=== PATIENT | female | born 1985 | race Caucasian/White ===

== ENCOUNTER → 2016-06-21 | Outpatient (CLI) | payer BC ==
[2016-06-21 17:19] LABS: BASOPHILS # (AUTO) 0.02 10*3/UL; BASOPHILS % (AUTO) 0.2 % (0-1); EOSINOPHILS % (AUTO) 0.4 % (0-8); HEMATOCRIT 39.4 % (37.0-47.0); HEMOGLOBIN 13.7 g/dL (12.0-16.0); IMM GRAN % (AUTO) 0.3 % (0-5); IMM GRAN# (AUTO) 0.03 10*3/UL; LYMPHOCYTES % (AUTO) 17.4 % (10-50); MEAN CORPUSCULAR HEMOGLOBIN 29.5 PG (27-31); MEAN CORPUSCULAR HGB CONC 34.8 g/dL (33-37); MEAN PLATELET VOLUME 11.5 FL (7.4-12.2); MONOCYTES # (AUTO) 0.98 10*3/UL (0.3-0.8); MONOCYTES % (AUTO) 8.5 % (5-15); NEUTROPHILS # (AUTO) 8.43 10*3/UL; NEUTROPHILS % (AUTO) 73.2 % (50-80); RDW COEFFICIENT OF VARIATION 12.7 % (11.5-14.5); RED BLOOD COUNT 4.64 10^6/uL (4.20-5.40); WHITE BLOOD COUNT 11.51 10^3/uL (4.8-10.8)
[2016-06-21 17:24] LABS: ASPARTATE AMINO TRANSFERASE 22 IU/L (8-39); BILIRUBIN,TOTAL 0.4 mg/dL (0.3-1.2); BLOOD UREA NITROGEN 12 mg/dL (7-22); BUN/CREATININE RATIO 17.14 (6-20); CALCIUM 9.4 mg/dL (8.7-10.7); CHLORIDE 103 meq/L (98-112); CREATININE 0.7 mg/dL (0.50-1.20); EST GLOMERULAR FILTRATION > 60 (>60 ml/min/1.73m(2)); GLUCOSE 83 mg/dL (78-110); SODIUM 135 meq/L (135-145); TOTAL PROTEIN 6.9 g/dL (6.1-8.0)
[2016-06-21 17:29] LABS: PLATELET MORPHOLOGY COMMENT NORMAL MORPHOLOGY (NORM); PRENATAL QUESTION YES (Y)
[2016-06-21 17:48] LABS: BILIRUBIN,URINE NEGATIVE (NEG); CLARITY,URINE CLEAR (CLEAR); GLUCOSE, URINE (UA) NEGATIVE (NEG); LEUKOCYTE ESTERASE ,URINE NEGATIVE (NEG); NITRATE,URINE NEGATIVE (NEG); OCCULT BLOOD,URINE NEGATIVE (NEG); PROTEIN,URINE NEGATIVE (NEG); UROBILINOGEN,URINE 0.2 mg/dL (0.2)
[2016-06-21 17:51] LABS: HIV ANTIBODY NEGATIVE (N); HIV-1 P24 ANTIGEN NEGATIVE (N); URINE SAMPLE TYPE CLEAN CATCH URINE
[2016-06-21 19:15] LABS: RBC,URINE 0-3 /hpf
[2016-06-21 19:16] LABS: SQUAMOUS EPITHELIAL CELL,UR RARE
[2016-06-23 13:46] LABS: RUBELLA IGG INDEX 2.7 (()); SYPHILIS IGG WITH REFLEX Negative (Negative)
[2016-06-23 13:49] LABS: HEP B SURFACE AG Negative (Negative)
== END ==
LOC: MOB LAB 15:27
PROVIDERS: ATTEND Obstetrics & Gynecology
DX: Z36 Encounter for antenatal screening of mother (principal); O09.291 Supervision of pregnancy with other poor reproductive or obstetric history, first trimester; Z83.49 Family history of other endocrine, nutritional and metabolic diseases
CPT/HCPCS: 36415; 80053; 80081; 81001; 84443; 86900; 86901; 87088

== ENCOUNTER → 2016-07-19 | Outpatient (CLI) | payer OTHER, BC ==
[2016-07-21 15:46] LABS: 24 HOUR URINE PROTEIN CONCENTR 4 mg/dL; 24 HOUR URINE TOTAL VOLUME 2925 ML; 24 HR URINE PROTEIN 117 mg/DAY (42-225)
== END ==
LOC: LAB 13:06
PROVIDERS: ATTEND Obstetrics & Gynecology
DX: O09.291 Supervision of pregnancy with other poor reproductive or obstetric history, first trimester (principal)
CPT/HCPCS: 84156

== ENCOUNTER → 2016-08-06 | Outpatient (CLI) | payer OTHER, BC ==
[2016-08-06 12:06] LABS: CREATININE 0.6 mg/dL (0.50-1.20); EST GLOMERULAR FILTRATION > 60 (>60 ml/min/1.73m(2)); POTASSIUM 3.8 meq/L (3.8-5.2)
[2016-08-06 12:07] LABS: BILIRUBIN,TOTAL 0.2 mg/dL (0.3-1.2); CALCIUM 9.3 mg/dL (8.7-10.7); TOTAL PROTEIN 6.5 g/dL (6.1-8.0)
== END ==
LOC: LAB 08:39
PROVIDERS: ATTEND Obstetrics & Gynecology
DX: O26.892 Other specified pregnancy related conditions, second trimester (principal); D68.62 Lupus anticoagulant syndrome; R94.5 Abnormal results of liver function studies; Z86.32 Personal history of gestational diabetes; Z3A.14 14 weeks gestation of pregnancy
CPT/HCPCS: 36415; 80053; 82248; 82950

== ENCOUNTER → 2016-09-16 | Outpatient (CLI) | payer OTHER, BC ==
--- NOTE | 2016-09-16 16:30 | DI ---
US OB GTE 14 WEEKS,09/16/2016 12:52 PM: Clinical History: screening for malformations. Previous Exam: June 15, 2016 Findings: Multiple transabdominal grayscale and color Doppler sonographic images are obtained through the pelvi s, and demonstrate a single live intrauterine gestation in vertex presentation. The placenta is anter ior without defects. anatomy is within normal limits. Detected Doppler heart tones measure 163 beats per minute. Estimated gestational age was determined by a composite of biparietal diameter, head circumference, a bdominal circumference and femur length yielding an estimated gestational age by ultrasound of 21 wee ks 2 days. Estimated weight is 414 g (84th percentile). Amniotic fluid index is grossly normal. Impression: A single live intrauterine gestation with size equal to dates.
== END ==
LOC: US 12:49
PROVIDERS: ATTEND Obstetrics & Gynecology
DX: Z36 Encounter for antenatal screening of mother (principal); Z3A.20 20 weeks gestation of pregnancy
CPT/HCPCS: 76805

== ENCOUNTER → 2016-10-18 | Outpatient (CLI) | payer OTHER, BC ==
[2016-10-20 14:04] LABS: 24 HOUR URINE TOTAL VOLUME 3090 ML
== END ==
LOC: LAB 08:38
PROVIDERS: ATTEND Obstetrics & Gynecology
DX: O09.292 Supervision of pregnancy with other poor reproductive or obstetric history, second trimester (principal); Z3A.25 25 weeks gestation of pregnancy
CPT/HCPCS: 84156

== ENCOUNTER → 2016-10-19 | Outpatient (CLI) | payer OTHER, BC ==
--- NOTE | 2016-10-19 14:19 | DI ---
US OB , LIMITED,10/19/2016 12:58 PM: Clinical History: Lupus anticoagulant affecting in the second trimester. Previous Exam: September 16, 2016 Findings: Multiple grayscale and color Doppler sonographic images are obtained through the pelvis, and demonstr ate a single live intrauterine gestation with detected Doppler heart tones of 144 beats per minute. Amniotic fluid index measures 19.6 cm. Estimated gestational age was determined by a composite of biparietal diameter, head circumference, a bdominal circumference and femur length yielding an estimated gestational age by ultrasound of 26 wee ks one day. Estimated weight is 935 g (86th percentile). Impression: Single live intrauterine station with size equal to dates.
== END ==
LOC: US 12:55
PROVIDERS: ATTEND Obstetrics & Gynecology
DX: O26.892 Other specified pregnancy related conditions, second trimester (principal); D68.62 Lupus anticoagulant syndrome; Z3A.25 25 weeks gestation of pregnancy
CPT/HCPCS: 76815

== ENCOUNTER → 2016-10-28 | Outpatient (CLI) | payer OTHER, BC | LOC: MOB LAB 10:47 | PROVIDERS: ATTEND Family Medicine | DX: O26.892 Other specified pregnancy related conditions, second trimester (principal); R30.0 Dysuria; Z3A.26 26 weeks gestation of pregnancy | CPT/HCPCS: 87088 ==

== ENCOUNTER → 2016-11-11 | Outpatient (CLI) | payer OTHER, BC ==
--- NOTE | 2016-11-11 15:24 | DI ---
LIMITED OBSTETRICAL ULTRASOUND, 11/11/2016 1:51 PM Clinical History: Lupus anticoagulant affecting in the second trimester. Previous Exam: 10/19/2016. ADJUSTED LMP: 04/25/2016. There is a single live IUP currently in vertex presentation. Estimated cervical length is 34 mm. Amni onic fluid content is normal. Amniotic fluid index is 16.5 cm. activity is observed as follows: cardiac and extremity. The placenta is anterior corpus and Grade 0. heart rate is 142 beats/mi nute and regular. No abnormalities are noted. BPD, HC, AC, and FL measurements are 71 mm, 268 m m, 261 mm, and 55 mm, respectively. These measurements correspond to EGA values of 28 weeks 4 days, 2 9 weeks 2 days, 30 weeks 2 days, and 29 weeks 1 day, respectively. The composite EGA is 29 weeks 3 da ys. The US EDC is 01/24/2017. EDC by adjusted LMP is 01/30/2017. LMP percentile is 76%. Estimated weight is 1425 g, plus or minus 208 g. Readin. Single live fetus with vertex presentation and normal amniotic fluid content. Amniotic fluid inde x is 16.5 cm. Placenta is anterior corpus and grade 1. Estimated cervical length is 34 mm. 2. The composite EGA 29 weeks 3 days with an ultrasound EDC of 01/24/2017. Based on the adjusted LMP date of 04/25/2016, the EDC would be 01/30/2017. 3. LMP percentile is 76%. Estimated weight is 1425 g, plus or minus 208 g. The weight of the f etus on the previous study was 935 g, plus or minus, 137 g.
== END ==
LOC: US 13:46
PROVIDERS: ATTEND Obstetrics & Gynecology
DX: O26.893 Other specified pregnancy related conditions, third trimester (principal); D68.62 Lupus anticoagulant syndrome; Z3A.28 28 weeks gestation of pregnancy
CPT/HCPCS: 76815

== ENCOUNTER → 2016-11-12 | Outpatient (CLI) | payer OTHER, BC ==
[2016-11-12 07:18] LABS: HEMATOCRIT 35.3 % (37.0-47.0); HEMOGLOBIN 11.9 g/dL (12.0-16.0); MEAN CORPUSCULAR HEMOGLOBIN 29.2 PG (27-31); MEAN CORPUSCULAR HGB CONC 33.7 g/dL (33-37); MEAN CORPUSCULAR VOLUME 86.5 FL (81-99); MEAN PLATELET VOLUME 9.8 FL (7.4-12.2); RED BLOOD COUNT 4.08 10^6/uL (4.20-5.40)
== END ==
LOC: LAB 07:05
PROVIDERS: ATTEND Obstetrics & Gynecology
DX: Z36 Encounter for antenatal screening of mother (principal); O09.893 Supervision of other high risk pregnancies, third trimester; Z3A.28 28 weeks gestation of pregnancy
CPT/HCPCS: 36415; 82950; 85027; 86850

== ENCOUNTER → 2016-12-06 | Outpatient (CLI) | payer OTHER, BC ==
--- NOTE | 2016-12-06 17:32 | DI ---
US OB BIOPHYS PROFILE W/NST,12/06/2016 4:16 PM: Clinical History: Lupus anticoagulant Previous Exam: Nov 11 2016 Findings: Multiple grayscale and color Doppler sonographic images are obtained through the pelvis, and demonstr ate a normal amniotic fluid index measuring 20.3 cm. There is normal motion of the limbs and diaphragms. Detected Doppler heart tones measured 139 beats p er minute. The placenta was anterior without visible defects. The cervix is long and closed measuring 4.4 cm in length. The fetus was in vertex presentation. Impression: 1. Normal biophysical profile (01/25)
== END ==
LOC: OBOP 15:59 → RT 15:59
PROVIDERS: ATTEND Obstetrics & Gynecology
DX: O24.415 Gestational diabetes mellitus in pregnancy, controlled by oral hypoglycemic drugs (principal); O09.293 Supervision of pregnancy with other poor reproductive or obstetric history, third trimester; D68.8 Other specified coagulation defects; Z3A.32 32 weeks gestation of pregnancy
CPT/HCPCS: 76818

== ENCOUNTER 2016-12-09 15:47 | Outpatient (CLI) | payer OTHER, BC ==
[2016-12-09 16:49] VITALS: RESP 18; TEMP 98.2
--- NOTE | 2016-12-09 17:24 | DI ---
US OB , LIMITED,12/09/2016 3:56 PM: Clinical History: Gestational diabetes. Previous Exam: Prior exam from December 06, 2016 Findings: Multiple grayscale and color Doppler sonographic images are obtained through the pelvis demonstrating a single live intrauterine gestation in vertex presentation. The cervix was not well seen on this ex am. Amniotic fluid index is normal measuring 20 cm. Detected Doppler heart tones measured 140 beats per minute. Estimated gestational age was determined by a composite of biparietal diameter, head circumference, a bdominal circumference and femur length yielding an estimated gestational age by ultrasound of 33 wee ks 6 days. Estimated weight is 2401 g corresponding with an 89 percentile. The abdominal circumference measured at the 98th percentile. Impression: Single live intrauterine gestation with size greater than dates. Normal amniotic fluid index.
== END 2016-12-09 17:33 | disposition home or self-care (01) ==
LOC: US 15:47
PROVIDERS: ATTEND Obstetrics & Gynecology
DX: O24.415 Gestational diabetes mellitus in pregnancy, controlled by oral hypoglycemic drugs (principal); O99.113 Other diseases of the blood and blood-forming organs and certain disorders involving the immune mechanism complicating pregnancy, third trimester; D68.8 Other specified coagulation defects; Z3A.32 32 weeks gestation of pregnancy
CPT/HCPCS: 59025; 76815; 99211

== ENCOUNTER 2016-12-13 15:52 | Outpatient (CLI) | payer OTHER, BC ==
[2016-12-13] MEDS ORDERED: NORMAL SALINE 10 ML SYRINGE FLUSH IVP PRN (16:48)
[2016-12-13 16:56] VITALS: RESP 18; TEMP 98.2
[2016-12-13 17:35] LABS: BASOPHILS # (AUTO) 0.02 10*3/UL; BASOPHILS % (AUTO) 0.1 % (0-1); EOSINOPHILS # (AUTO) 0.14 10*3/UL; HEMOGLOBIN 11.6 g/dL (12.0-16.0); LYMPHOCYTES # (AUTO) 2.69 10*3/uL; MEAN CORPUSCULAR HEMOGLOBIN 29.1 PG (27-31); MEAN CORPUSCULAR HGB CONC 34.1 g/dL (33-37); MEAN CORPUSCULAR VOLUME 85.4 FL (81-99); MEAN PLATELET VOLUME 10.2 FL (7.4-12.2); MONOCYTES # (AUTO) 1.37 10*3/UL (0.3-0.8); MONOCYTES % (AUTO) 9.5 % (5-15); NEUTROPHILS # (AUTO) 9.93 10*3/UL; RED BLOOD COUNT 3.98 10^6/uL (4.20-5.40)
[2016-12-13 17:40] LABS: PLATELET MORPHOLOGY COMMENT NORMAL MORPHOLOGY (NORM); RBC MORPHOLOGY COMMENT NORMAL MORPHOLOGY (NORM); WBC MORPHOLOGY COMMENT NORMAL MORPHOLOGY (NORM)
[2016-12-13 17:49] LABS: BLOOD UREA NITROGEN 9 mg/dL (7-22); CALCIUM 8.8 mg/dL (8.7-10.7); EST GLOMERULAR FILTRATION > 60 (>60 ml/min/1.73m(2)); SERUM ALBUMIN 3.3 g/dL (3.5-4.8)
[2016-12-14 10:50] LABS: FREE T4 (FREE THYROXINE) 0.78 ng/dL (0.93-1.71)
--- NOTE | 2016-12-15 22:33 | PDOC(PROG) ---
Intake - - Reason for Visit/Chief Complaint: NST Admitted From: Home - Estimated Due Date: 01/30/17 Gestational Age in Weeks and Days: 33 Weeks and 3 Days : 5 Para: 1 Term Births: 1 Births: 0 Number of Abortions (Spont./Elective): 3 Living Children: 1 - Labs Blood Type and Rh: A- Maternal - Vital Signs Last Taken Vital Signs: Vital Signs - Last Taken Temperature 98.2 F 12/13/16 16:48 Pulse Rate 121 H 12/13/16 16:48 Respiratory Rate 18 12/13/16 16:48 Blood Pressure 118/72 12/13/16 16:48 Pulse Ox 97 12/13/16 16:48 - Uterine Activity Uterine Contraction Monitor Mode: External Contraction Frequency(minutes): x1 Contraction Duration (seconds): 40 Uterine Contraction Pattern: Irregular - Vaginal Discharge Vaginal Bleeding Amount: None Vaginal Discharge Amount: None Monitoring - Uterine Activity Uterine Contraction Monitor Mode: External Contraction Frequency(minutes): x1 Contraction Duration (seconds): 40 Uterine Contraction Pattern: Irregular Results - Labs CBC and BMP: 12/13/16 17:25 12/13/16 17:25 - Bedside Testing Bedside Urine Ketone: Negative Bedside Urine Leukocytes Esterase: Negative Bedside Urine Nitrite: Negative Bedside Urine Occult Blood: Negative Bedside Urine Protein: Negative Bedside Specific [place]: 1.020 Assessment and Plan - Assessment / Plan Additional Assessment/Plan Details: Assessment/Plan: IUP 33+ weeks with lupus anticoagulant with recurrent SAB. Also gestational diabetes on glyburide. Patient also had some mild tachycardia in labor and delivery and historically as had mild tachycardia. The patient had a reactive nonstress test. The patient was sent home with precautions. Additionally, a CBC, CMP, TSH and free T4 were drawn prior to the patient leaving. Patient will continue antepartum testing 2 times per week.
== END 2016-12-13 17:45 | disposition home or self-care (01) ==
LOC: OBOP 15:52
PROVIDERS: ATTEND Obstetrics & Gynecology
DX: O09.293 Supervision of pregnancy with other poor reproductive or obstetric history, third trimester (principal); O26.893 Other specified pregnancy related conditions, third trimester; R94.6 Abnormal results of thyroid function studies; O24.415 Gestational diabetes mellitus in pregnancy, controlled by oral hypoglycemic drugs; Z3A.33 33 weeks gestation of pregnancy
CPT/HCPCS: 36415; 59025; 80053; 81003; 84436; 84439; 84443; 85025; 99211

== ENCOUNTER 2016-12-16 07:59 | Outpatient (CLI) | payer OTHER, BC ==
[2016-12-16 09:37] VITALS: RESP 16; TEMP 97.9
--- NOTE | 2016-12-16 11:11 | DI ---
US OB , LIMITED,12/16/2016 8:40 AM: Clinical History: Gestational diabetes. Previous Exam: None at this facility. Findings: Multiple grayscale and color Doppler sonographic images are obtained through the pelvis demonstrating a single live intrauterine gestation in breech presentation. Amniotic fluid index is normal measuring 18.0 cm. There is normal motion of the heart the limbs and diaphragms. The placenta is anterior and grade 1 without defects. Detected Doppler heart tones measure 134 beats per minute. Impression: Single live intrauterine gestation with normal amniotic fluid index.
== END 2016-12-16 10:52 | disposition home or self-care (01) ==
LOC: OBOP 07:59
PROVIDERS: ATTEND Obstetrics & Gynecology
DX: O24.415 Gestational diabetes mellitus in pregnancy, controlled by oral hypoglycemic drugs (principal); O99.113 Other diseases of the blood and blood-forming organs and certain disorders involving the immune mechanism complicating pregnancy, third trimester; D68.8 Other specified coagulation defects; O26.893 Other specified pregnancy related conditions, third trimester; R94.6 Abnormal results of thyroid function studies; Z3A.32 32 weeks gestation of pregnancy
CPT/HCPCS: 59025; 76815; 84481; 99211

== ENCOUNTER 2016-12-20 09:05 | Outpatient (CLI) | payer OTHER, BC ==
[2016-12-20 09:19] VITALS: RESP 18; TEMP 97.9
--- NOTE | 2016-12-20 12:40 | PDOC(PROG) ---
Intake - - Reason for Visit/Chief Complaint: NST Admitted From: Home - Estimated Due Date: 01/30/17 Gestational Age in Weeks and Days: 34 Weeks and 1 Days : 5 Para: 1 Term Births: 1 Births: 0 Number of Abortions (Spont./Elective): 3 Living Children: 1 - Labs Blood Type and Rh: A- Group B Strep: Unknown Hepatitis B Surface Antigen: Absent HIV: Negative Rubella Status: Immune VDRL/RPR: Absent Maternal - Vital Signs Last Taken Vital Signs: Vital Signs - Last Taken Temperature 97.9 F 12/20/16 09:16 Pulse Rate 100 12/20/16 09:16 Respiratory Rate 18 12/20/16 09:16 Blood Pressure 110/69 12/20/16 09:16 Pulse Ox 100 12/20/16 09:16 - Uterine Activity Uterine Contraction Monitor Mode: External Contraction Frequency(minutes): x2 Contraction Duration (seconds): 80 Uterine Contraction Pattern: Irregular - Vaginal Discharge Vaginal Bleeding Amount: None Vaginal Discharge Amount: None Monitoring - Uterine Activity Uterine Contraction Monitor Mode: External Contraction Frequency(minutes): x2 Contraction Duration (seconds): 80 Uterine Contraction Pattern: Irregular Results - Bedside Testing Bedside Urine Ketone: Negative Bedside Urine Leukocytes Esterase: Negative Bedside Urine Nitrite: Negative Bedside Urine Occult Blood: Negative Bedside Urine Protein: Negative Bedside Specific [place]: 1.005 Assessment and Plan - Assessment / Plan Additional Assessment/Plan Details: Assessment: IUP 34-1/7 week with lupus anticoagulant, gestational diabetes taking glyburide. Reactive nonstress test, patient did not bring glucoses with her. Patient has an appointment with me in 2 days. There were 2 contractions visualized on the nonstress test. The patient was given labor precautions. If the patient's contractions continue, I may offer steroids to help with lung maturity. Of course, this may increase her glucoses for a few days. The patient will continue her Lovenox and baby aspirin currently.
== END 2016-12-20 09:47 | disposition home or self-care (01) ==
LOC: OBOP 09:05
PROVIDERS: ATTEND Obstetrics & Gynecology
DX: O24.415 Gestational diabetes mellitus in pregnancy, controlled by oral hypoglycemic drugs (principal); O99.113 Other diseases of the blood and blood-forming organs and certain disorders involving the immune mechanism complicating pregnancy, third trimester; D68.8 Other specified coagulation defects; Z3A.34 34 weeks gestation of pregnancy
CPT/HCPCS: 59025; 81003; 99211

== ENCOUNTER → 2016-12-22 | Outpatient (CLI) | payer OTHER, BC ==
[2016-12-22 08:49] LABS: BASOPHILS # (AUTO) 0.06 10*3/UL; BASOPHILS % (AUTO) 0.4 % (0-1); EOSINOPHILS # (AUTO) 0.13 10*3/UL; EOSINOPHILS % (AUTO) 0.9 % (0-8); HEMATOCRIT 37.7 % (37.0-47.0); HEMOGLOBIN 12.9 g/dL (12.0-16.0); LYMPHOCYTES # (AUTO) 2.08 10*3/uL; MEAN CORPUSCULAR HEMOGLOBIN 29.3 PG (27-31); MEAN CORPUSCULAR HGB CONC 34.2 g/dL (33-37); MEAN CORPUSCULAR VOLUME 85.5 FL (81-99); MEAN PLATELET VOLUME 10.7 FL (7.4-12.2); MONOCYTES # (AUTO) 1.29 10*3/UL (0.3-0.8); MONOCYTES % (AUTO) 8.5 % (5-15); NEUTROPHILS # (AUTO) 11.37 10*3/UL; NEUTROPHILS % (AUTO) 74.6 % (50-80); RED BLOOD COUNT 4.41 10^6/uL (4.20-5.40)
[2016-12-22 08:50] LABS: PLATELET MORPHOLOGY COMMENT NORMAL MORPHOLOGY (NORM); RBC MORPHOLOGY COMMENT NORMAL MORPHOLOGY (NORM); WBC MORPHOLOGY COMMENT NORMAL MORPHOLOGY (NORM)
[2016-12-22 09:02] LABS: BLOOD UREA NITROGEN 8 mg/dL (7-22); BUN/CREATININE RATIO 13.33 (6-20); EST GLOMERULAR FILTRATION > 60 (>60 ml/min/1.73m(2)); SERUM ALBUMIN 3.8 g/dL (3.5-4.8)
[2016-12-22 09:19] LABS: FREE T4 (FREE THYROXINE) 0.69 ng/dL (0.93-1.71)
== END ==
LOC: LAB 08:31
PROVIDERS: ATTEND Obstetrics & Gynecology
DX: O26.893 Other specified pregnancy related conditions, third trimester (principal); R00.0 Tachycardia, unspecified; R94.6 Abnormal results of thyroid function studies; O09.293 Supervision of pregnancy with other poor reproductive or obstetric history, third trimester; Z3A.34 34 weeks gestation of pregnancy
CPT/HCPCS: 36415; 80053; 84439; 84443; 84481; 85025

== ENCOUNTER 2016-12-23 07:45 | Inpatient (IN) | payer OTHER, BC ==
[2016-12-23] MEDS ORDERED: NIFEdipine 10 MG CAPSULE PO ONE ×5 (09:09→11:10)
[2016-12-23] MEDS ORDERED: BETAMET ACET/BETAMET NA PH 6 MG/1 ML - 5 ML ONE (09:21)
[2016-12-23] MEDS: BETAMET ACET/BETAMET NA PH 6 MG/1 ML - 5 ML IM SCH (10:09)
[2016-12-23] MEDS: LACTATED RINGERS 1000 ML PRIMARY IV SCH ×2 (11:30→16:24)
--- NOTE | 2016-12-23 11:39 | DI ---
THYROID ULTRASOUND, 12/23/2016 8:35 AM Clinical History: Thyroid enlargement. Previous Exam: None. Scans are performed through both lobes of the thyroid gland in multiple projections with the high res olution linear array probe. Color Doppler ultrasound is also performed. Both lobes of the thyroid gland are of homogeneous texture and normal appearance. The right and left lobes measure 22 x 22 x 56 mm, and 17 x 20 x 48 mm, in the AP, transverse, and longitudinal dimension s, respectively. The right lobe is enlarged and the left lobe is at the upper limits of normal in siz e. There is no solid or cystic mass noted in either lobe or in the isthmus. Color Doppler ultrasound shows a normal vascular pattern in both lobes. Readin. The right lobe is enlarged and the left lobe is at the upper limits of normal in size. 2. Both lobes of the thyroid gland and the isthmus have a normal sonographic texture without evidenc e of a solid or cystic mass.
[2016-12-23] MEDS ORDERED: LIDOCAINE W/ SODIUM BICARB 0.5 ML SYR SUBD PRN (12:01)
[2016-12-23] MEDS ORDERED: ONDANSETRON 4 MG/2 ML VIAL IVP PRN (12:01)
[2016-12-23] MEDS ORDERED: NORMAL SALINE 10 ML SYRINGE FLUSH IVP PRN (12:01)
--- NOTE | 2016-12-23 12:16 | OB.PROGRES ---
Interval History: The patient is a 31-year-old at 34 4/7 weeks who presented today for antepartum testing secondary to positive lupus anticoagulant taking Lovenox 40 mg subcutaneous daily and gestational diabetes taking glyburide daily at bedtime and just starting nightly this morning after seeing me yesterday. The patient has been undergoing antepartum testing since around 32 weeks' gestation. The patient's has essentially been uncomplicated although she is taking the Lovenox and baby aspirin and now glyburide for gestational diabetes with slightly elevated fasting glucoses and 2 hour postprandial glucoses. With the presentation today, the patient was found to be todd regularly. The patient had an CECE which was due today and was found to be 27 cm. Additionally, the baby is in the breech presentation. The patient was administered nifedipine 10 mg prior to the ultrasound and then upon returning from the ultrasound she was given 10 mg daily 30 minutes for a total of 3 doses. The patient was also given Celestone 12 mg IM for lung maturity in case the patient delivers . A fibronectin was completed as well as a group B strep. The patient has a positive lupus anticoagulant or antiphospholipid antibody syndrome with a history of recurrent SABs and therefore workup and her Al' s viper venom was +2 different times over a three-month period. The patient currently is taking a baby aspirin daily and she is taking Lovenox 40 mg per day subcutaneously with an injection. The patient did not take her Lovenox this morning since she had a couple contractions prior to coming to labor and delivery. Past medical history is significant for recurrent SAB, a sleep disorder for which the patient takes trazodone up to 100 mg daily. The patient also has a hiatal hernia and has a history of GERD but does not have GERD currently. Patient has a history of depression but not currently. The patient also has a gluten enteropathy. Past surgical history after arrest of descent with unsuccessful forceps and vacuum. No known drug allergies No tobacco, alcohol, drugs Current medications vitamin, baby aspirin per day, Lovenox 40 mg daily subcutaneous, trazodone-patient is currently taking 25 mg at night for sleep and this is not helping that much. OB history significant for PIH and gestational diabetes. The patient states it was diet controlled at that time. The patient states that sometimes her glucoses were elevated. [employer] history with menarche age 12, irregular cycles 3545 days in length, no STI history, no abnormal Pap smear history with her last Pap smear within the last year and was normal and she had a negative GC and chlamydia. Family history significant for brother having Graves' disease Objective - Cervical Exam Cervical Exam: loose 1 cm/thick/high breech by u/s today. Cervix is firm. Cervix is slightly posterior. No blood on my glove digit with cervical exam Tina: Contractions every 2-3 minutes Heart Rate Interpretation Category: Category I - Labs CBC and BMP: 12/23/16 12:27 12/23/16 12:27 Labs - Last 24 Hours: Laboratory Results 12/23/16 Range/Units 09:21 Fibronectin Negative Fibronect Spec Quality No - Vital Signs Last Taken Vital Signs: Vital Signs - Last Taken Temperature 98.0 F 12/23/16 08:08 Pulse Rate 104 H 12/23/16 08:08 Respiratory Rate 16 12/23/16 08:08 Blood Pressure 131/80 12/23/16 10:46 Pulse Ox 99 12/23/16 08:08 - Additional Details Additional Details: Abdomen is gravid, soft and nontender. No guarding or rebound Lungs clear to auscultation Heart minimally tachycardic with a regular rhythm Extremities with no significant edema Reflexes 1+ bilaterally lower extremity -patellar Assessment and Plan - Assessment / Plan Additional Assessment/Plan Details: Assessment/Plan: IUP 34-4/7 weeks contractions. Currently, no change in cervix in 3+ hours between cervical checks. Contractions every 2-3 minutes. The patient has received nifedipine 10 mg 3 doses and then every 3 hours with next dose at 1415 hrs. The patient has received Celestone 12 mg IM 1 dose and will complete the course in 24 hours. Administered at 1000 hrs. today fibronectin was negative CECE was 27 cm today. This could be one etiology for contractions Previous section-here at [facility] we do not do TOLACs and the patient's baby is in breech presentation Repeat at 39 weeks if patient's contractions cease Repeat earlier if contractions continue. Recurrent SAB and lupus anticoagulant on Lovenox 40 mg per day and baby aspirin- 81 mg per day The patient did not take her Lovenox this morning since she had antepartum testing and felt a couple contractions. The patient will be switched over to unfractionated heparin 10,000 units subcutaneous twice a day-this will be started this evening Gestational diabetes taking Glyburide 7-1/2 mg daily at bedtime and 2.5 mg in the morning. The morning dose was just started this morning. The Celestone that is being administered will increase the patient's glucoses. We will continue fingerstick glucoses. If the glucoses elevate significantly, the patient may need insulin temporarily. History of preeclampsia in last and history of gestational diabetes and last . Patient is on baby aspirin per day. Patient had 2 slightly elevated blood pressures on presentation this morning but since then her blood pressures have been normal. 24-hour urine for total protein has been ordered. Liver function tests and creatinine are normal. Platelets are normal. Patient's white count is elevated to 20,000. Yesterday the white count was 15, 000. The white count today was drawn to a half hours after the Celestone was administered. There could be a deep margin a should and an increased white count secondary to the Celestone administered. The patient is not febrile and the patient's abdomen is nontender. I do not believe the patient has chorioamnionitis currently. Additionally, the patient's TSH was checked last week and was low-normal but normal secondary to maternal tachycardia 100-110. Patient's free T4 was low. Patient's free T3 was then checked and was normal. TSH, free T4 and free T3 was checked this week and again TSH low-normal, free T4 low, free T3 was normal. I did speak with our pediatric back line cook here and she thought that since free T3 was normal, no treatment was necessary. Plan: Please see above. Additionally, IV fluids at 125 an hour Clear liquids initially then regular diet I have held the patient's unfractionated heparin currently Once the patient does deliver the patient can go back on Lovenox 40 mg daily for 6 weeks Group B strep is pending Celestone 12 mg IM was administered at 1000 hours this morning and the second dose tomorrow morning at 1000 hrs. Follow fingerstick glucoses I will speak with my maternal- medicine consultants if the contractions continue every 2 minutes or if the patient's cervix starts to change for possible transport to [place] since we do not have a NICU here.
[2016-12-23 12:30] LABS: BASOPHILS # (AUTO) 0.04 10*3/UL; BASOPHILS % (AUTO) 0.2 % (0-1); EOSINOPHILS # (AUTO) 0.01 10*3/UL; EOSINOPHILS % (AUTO) 0 % (0-8); HEMATOCRIT 39.4 % (37.0-47.0); HEMOGLOBIN 13.7 g/dL (12.0-16.0); MEAN CORPUSCULAR HEMOGLOBIN 29.5 PG (27-31); MEAN CORPUSCULAR HGB CONC 34.8 g/dL (33-37); MEAN CORPUSCULAR VOLUME 84.7 FL (81-99); MEAN PLATELET VOLUME 10.6 FL (7.4-12.2); MONOCYTES # (AUTO) 0.46 10*3/UL (0.3-0.8); MONOCYTES % (AUTO) 2.3 % (5-15); NEUTROPHILS # (AUTO) 18.14 10*3/UL; NEUTROPHILS % (AUTO) 90.5 % (50-80); RED BLOOD COUNT 4.65 10^6/uL (4.20-5.40)
[2016-12-23 12:33] LABS: PLATELET MORPHOLOGY COMMENT NORMAL MORPHOLOGY (NORM); RBC MORPHOLOGY COMMENT NORMAL MORPHOLOGY (NORM); WBC MORPHOLOGY COMMENT NORMAL MORPHOLOGY (NORM)
[2016-12-23 12:39] LABS: BLOOD UREA NITROGEN 6 mg/dL (7-22); CALCIUM 9.3 mg/dL (8.7-10.7); EST GLOMERULAR FILTRATION > 60 (>60 ml/min/1.73m(2)); SERUM ALBUMIN 4.1 g/dL (3.5-4.8)
[2016-12-23] MEDS: NIFEdipine 10 MG CAPSULE PO SCH ×4 (14:13→23:08)
[2016-12-23 14:17] LABS: BILIRUBIN,URINE NEGATIVE (NEG); CLARITY,URINE CLEAR (CLEAR); COLOR,URINE YELLOW; GLUCOSE, URINE (UA) NEGATIVE (NEG); NITRATE,URINE NEGATIVE (NEG); OCCULT BLOOD,URINE NEGATIVE (NEG); PROTEIN,URINE NEGATIVE (NEG); UROBILINOGEN,URINE 0.2 EU/dL (0.2)
[2016-12-23 14:28] LABS: URINE SAMPLE TYPE VOIDED SPECIMEN
[2016-12-23 14:29] LABS: SQUAMOUS EPITHELIAL CELL,UR FEW; WBC,URINE 0-2
--- NOTE | 2016-12-23 15:32 | OB.PROGRES ---
Interval History: The patient is comfortable but can feel her contractions. 2-3 out of 10 on a pain scale. She is not breathing through her contractions. Her contractions are about every 3 minutes. No leakage of fluid and no vaginal bleeding. Patient is tolerating the nifedipine well. Objective - Cervical Exam [place]: Contractions every 2-1/2-3 minutes Heart Rate Interpretation Category: Category I - Labs CBC and BMP: 12/23/16 12:27 12/23/16 12:27 Labs - Last 24 Hours: Laboratory Results 12/23/16 12/23/16 12/23/16 Range/Units 09:21 12:27 14:15 WBC 20.06 H (4.8-10.8) 10^3/uL RBC 4.65 (4.20-5.40) 10^6/uL Hgb 13.7 (12.0-16.0) g/dL Hct 39.4 (37.0-47.0) % MCV 84.7 (81-99) FL MCH 29.5 (27-31) PG MCHC 34.8 (33-37) g/dL RDW Std Deviation 45.4 (39-50) fL RDW Coeff of Hortencia 15.1 H (11.5-14.5) % Plt Count 205 (140-350) 10*3/uL MPV 10.6 (7.4-12.2) FL Immature Gran % (Auto) 1.5 (0-5) % Neut % (Auto) 90.5 H (50-80) % Lymph % (Auto) 5.5 L (10-50) % Riley % (Auto) 2.3 L (5-15) % Eos % (Auto) 0 (0-8) % Baso % (Auto) 0.2 (0-1) % Immature Gran # (Auto) 0.31 10*3/UL Neut # (Auto) 18.14 10*3/UL Lymph # (Auto) 1.10 10*3/uL Riley # (Auto) 0.46 (0.3-0.8) 10*3/UL Eos # (Auto) 0.01 10*3/UL Baso # (Auto) 0.04 10*3/UL WBC Morphology Comment Normal morphology (NORM) Plt Morphology Comment Normal morphology (NORM) RBC Morph Comment Normal morphology (NORM) Sodium 137 (135-145) meq/L Potassium 3.9 (3.8-5.2) meq/L Chloride 108 (98-112) meq/L Carbon Dioxide 17 L (23-33) meq/L Anion Gap 12 (5-20) BUN 6 L (7-22) mg/dL Creatinine 0.6 (0.50-1.20) mg/dL Estimated GFR > 60 (>60 ml/min/1.73m(2)) BUN/Creatinine Ratio 10.00 (6-20) Glucose 127 H (78-110) mg/dL Calculated Osmolality 283.0 (267-292) mOsm/kg Calcium 9.3 (8.7-10.7) mg/dL Total Bilirubin 0.5 D (0.3-1.2) mg/dL AST 21 (8-39) IU/L ALT 38 (9-52) IU/L Alkaline Phosphatase 115 (38-126) IU/L Total Protein 7.4 (6.1-8.0) g/dL Albumin 4.1 (3.5-4.8) g/dL Globulin 3.3 (2.50-4.10) g/dL Albumin/Globulin Ratio 1.20 L (1.3-2.0) mg/g Ur Collection Type Voided specimen Urine Color Yellow Urine Clarity Clear (CLEAR) Urine pH 7.0 (5.0-8.5) Ur Specific [place] 1.010 (1.005-1.030) Urine Protein Negative (NEG) mg/dl Urine Glucose (UA) Negative (NEG) mg/dL Urine Ketones 80 (NEG) Urine Occult Blood Negative (NEG) Urine Nitrate Negative (NEG) Urine Bilirubin Negative (NEG) Urine Urobilinogen 0.2 (0.2) EU/dL Ur Leukocyte Esterase Trace (NEG) Urine RBC None (NONE) /hpf Urine WBC 0-2 (NONE) Ur Squamous Epith Cells Few (NONE) Ur Renal Epithelial Cell None (NONE) Urine Crystals None Urine Bacteria None (NONE) Urine Casts None (NONE) Urine Mucus None (NONE) Urine Trichomonas None (NONE) Urine Yeast None (NONE) Ur Culture Indicated? Culture not set Fibronectin Negative Fibronect Spec Quality No - Vital Signs Last Taken Vital Signs: Vital Signs - Last Taken Temperature 98.0 F 12/23/16 13:22 Pulse Rate 105 H 12/23/16 13:22 Respiratory Rate 20 12/23/16 13:22 Blood Pressure 129/77 12/23/16 13:22 Pulse Ox 99 12/23/16 13:22 Assessment and Plan - Assessment / Plan Additional Assessment/Plan Details: Assessment: IUP 34-4/7 weeks with contractions. Please see my previous note. I did speak with maternal medicine in [facility] consultants. I explained the patient's history and current contractions with no cervical change. We discussed the fact that the CECE was 27 cm and the fact that the baby is measuring the 89th percentile with the Viraj circumference even slightly larger and the M stated that he has seen this often where the CECE was increased when the abdominal circumference is slightly increased and the baby is slightly larger. Dr. Smart also agreed that the patient's white count of 20,000 was most likely to D margin age and secondary to the Celestone. He did not think chorioamnionitis was a likely diagnosis although always possible. The current plan is to continue to observe the patient with administering nifedipine 10 mg every 3 hours. Additionally, we discussed the fact that I have switched the patient over to unfractionated heparin 10,000 units subcutaneous twice a day but have pelvic currently in's the patient is todd. Also, of course, continuing to administer the Celestone course with the next injection due at 1000 hrs. tomorrow morning. The reasons for transfer the patient would be cervical change or increase in intensity of her contractions. I have discussed this with the nurse's here and also with the patient.
--- NOTE | 2016-12-23 18:33 | DI ---
LIMITED OBSTETRICAL ULTRASOUND FOR CECE, 12/23/2016 8:35 AM Clinical History: Gestational diabetes. Lupus anticoagulant. Previous Exam: 12/16/2016. ADJUSTED LMP: 04/25/2016. There is a single live IUP currently in breech presentation. Amnionic fluid content is increased for this stage of indicating polyhydramnios. CECE is 27.7 cm. activity is observed as foll ows: cardiac and extremity. The placenta is anterior corpus and Grade 1. heart rate is 160 beat s/minute and regular. Readin. Single live fetus currently in breech presentation. Placenta is anterior corpus and grade 1. The placenta measures about 45 mm in maximum thickness. Patients with diabetes mellitus frequently can hare ve placentas that measure 50 mm in thickness or more. 2. Polyhydramnios. CECE is 27.7 cm.
[2016-12-23] MEDS ORDERED: HYDROcodone-APAP 5 MG -325 MG TABLET PO ONE (20:00)
[2016-12-23] MEDS ORDERED: HEPARIN 5000 UNIT/1 ML SUBCUT SCH (21:15)
--- NOTE | 2016-12-23 21:20 | OB.PROGRES ---
Interval History: The patient states that she has had decreased discomfort with her contractions since they have spread out some. She tried one hydrocodone for discomfort and perhaps this helped. She does not have abdominal pain. It is more that her abdomen is sore from the contractions. She was hungry and ate something. She did not take her baby aspirin either today. Objective - Cervical Exam Cervical Exam: Unchanged by nurse 2 hours ago. I did not check her cervix just now [place]: Contractions every 3-6 minutes Heart Rate Interpretation Category: Category I - Labs CBC and BMP: 12/23/16 12:27 12/23/16 12:27 Labs - Last 24 Hours: Laboratory Results 12/23/16 12/23/16 12/23/16 Range/Units 09:21 12:27 14:15 WBC 20.06 H (4.8-10.8) 10^3/uL RBC 4.65 (4.20-5.40) 10^6/uL Hgb 13.7 (12.0-16.0) g/dL Hct 39.4 (37.0-47.0) % MCV 84.7 (81-99) FL MCH 29.5 (27-31) PG MCHC 34.8 (33-37) g/dL RDW Std Deviation 45.4 (39-50) fL RDW Coeff of [place] 15.1 H (11.5-14.5) % Plt Count 205 (140-350) 10*3/uL MPV 10.6 (7.4-12.2) FL Immature Gran % (Auto) 1.5 (0-5) % Neut % (Auto) 90.5 H (50-80) % Lymph % (Auto) 5.5 L (10-50) % [place] % (Auto) 2.3 L (5-15) % Eos % (Auto) 0 (0-8) % Baso % (Auto) 0.2 (0-1) % Immature Gran # (Auto) 0.31 10*3/UL Neut # (Auto) 18.14 10*3/UL Lymph # (Auto) 1.10 10*3/uL [place] # (Auto) 0.46 (0.3-0.8) 10*3/UL Eos # (Auto) 0.01 10*3/UL Baso # (Auto) 0.04 10*3/UL WBC Morphology Comment Normal morphology (NORM) Plt Morphology Comment Normal morphology (NORM) RBC Morph Comment Normal morphology (NORM) Sodium 137 (135-145) meq/L Potassium 3.9 (3.8-5.2) meq/L Chloride 108 (98-112) meq/L Carbon Dioxide 17 L (23-33) meq/L Anion Gap 12 (5-20) BUN 6 L (7-22) mg/dL Creatinine 0.6 (0.50-1.20) mg/dL Estimated GFR > 60 (>60 ml/min/1.73m(2)) BUN/Creatinine Ratio 10.00 (6-20) Glucose 127 H (78-110) mg/dL Calculated Osmolality 283.0 (267-292) mOsm/kg Calcium 9.3 (8.7-10.7) mg/dL Total Bilirubin 0.5 D (0.3-1.2) mg/dL AST 21 (8-39) IU/L ALT 38 (9-52) IU/L Alkaline Phosphatase 115 (38-126) IU/L Total Protein 7.4 (6.1-8.0) g/dL Albumin 4.1 (3.5-4.8) g/dL Globulin 3.3 (2.50-4.10) g/dL Albumin/Globulin Ratio 1.20 L (1.3-2.0) mg/g Ur Collection Type Voided specimen Urine Color Yellow Urine Clarity Clear (CLEAR) Urine pH 7.0 (5.0-8.5) Ur Specific [place] 1.010 (1.005-1.030) Urine Protein Negative (NEG) mg/dl Urine Glucose (UA) Negative (NEG) mg/dL Urine Ketones 80 (NEG) Urine Occult Blood Negative (NEG) Urine Nitrate Negative (NEG) Urine Bilirubin Negative (NEG) Urine Urobilinogen 0.2 (0.2) EU/dL Ur Leukocyte Esterase Trace (NEG) Urine RBC None (NONE) /hpf Urine WBC 0-2 (NONE) Ur Squamous Epith Cells Few (NONE) Ur Renal Epithelial Cell None (NONE) Urine Crystals None Urine Bacteria None (NONE) Urine Casts None (NONE) Urine Mucus None (NONE) Urine Trichomonas None (NONE) Urine Yeast None (NONE) Ur Culture Indicated? Culture not set Fibronectin Negative Fibronect Spec Quality No - Vital Signs Last Taken Vital Signs: Vital Signs - Last Taken Temperature 98.0 F 12/23/16 17:27 Pulse Rate 99 12/23/16 17:27 Respiratory Rate 18 12/23/16 17:27 Blood Pressure 118/68 12/23/16 17:27 Pulse Ox 98 12/23/16 17:27 - Additional Details Additional Details: Abdomen is gravid, soft, nontender, no guarding or rebound Assessment and Plan - Assessment / Plan Additional Assessment/Plan Details: Assessment: IUP 34-4/7 weeks with contractions currently on nifedipine 10 mg every 3 hours. Hydramnios by CECE today-27 cm, Lupus anticoagulant, gestational diabetes taking glyburide, previous section, history of preeclampsia with her last . 2 minimally elevated blood pressures on presentation but blood pressures have been normal before nifedipine was started and of course since nifedipine was started earlier today. Please see my previous admission note for more details. The patient's contractions seemed to be decreasing in frequency and intensity and the patient's cervix is not changed. Plan: I have ordered heparin 10,000 units subcutaneous twice a day Baby aspirin 81 mg daily Continue nifedipine 10 mg every 3 hours but may decrease in frequency to every 4 hours. Continue to observe closely.
[2016-12-23] MEDS ORDERED: HYDROXYZINE PAMOATE 25 MG CAPSULE PO PRN (21:35)
[2016-12-23] MEDS ORDERED: HYDROcodone-APAP 5 MG -325 MG TABLET PO PRN (21:42)
[2016-12-23] MEDS: ASPIRIN 81 MG (BABY) CHEWABLE TABLET PO SCH (21:51)
[2016-12-23] MEDS: glyBURIDE 5 MG TABLET PO SCH (21:52)
[2016-12-24] MEDS: NIFEdipine 10 MG CAPSULE PO SCH ×6 (02:22→20:40)
--- NOTE | 2016-12-24 07:07 | OB.PROGRES ---
Interval History: The patient states that this morning and overnight her contractions have decreased in frequency and her discomfort in her abdomen from the continued contractions has improved significantly. The patient has never had abdominal pain but more of a soreness of her abdomen secondary to the contractions. The baby is moving well. This morning, the patient states that she believes her contractions have decreased in frequency and intensity. The patient had her first dose of unfractionated heparin last night. The patient's observation is that it was quite a large quantity subcutaneous. The patient's fasting glucose this morning was 133. Objective - Cervical Exam Cervical Exam: Deferred currently. I do not want to irritate the patient's cervix since the patient is not feeling pelvic pressure and her contractions have improved. The nurse that is taking care of the patient today checked her cervix yesterday. If the patient starts having pelvic pressure or increased contractions, I will ask the nurse to check the patient since she is familiar with the patient's cervical exam. [place]: Irregular contractions and some uterine irritability noted Heart Rate Interpretation Category: Category I (Sometimes the patient is sitting up and the external monitor picks up the mother's heart rate instead of the heart rate. But the heart rate has had good accelerations and is category 1) - Labs CBC and BMP: 12/23/16 12:27 12/23/16 12:27 Labs - Last 24 Hours: Laboratory Results 12/23/16 12/23/16 12/23/16 Range/Units 09:21 12:27 14:15 WBC 20.06 H (4.8-10.8) 10^3/uL RBC 4.65 (4.20-5.40) 10^6/uL Hgb 13.7 (12.0-16.0) g/dL Hct 39.4 (37.0-47.0) % MCV 84.7 (81-99) FL MCH 29.5 (27-31) PG MCHC 34.8 (33-37) g/dL RDW Std Deviation 45.4 (39-50) fL RDW Coeff of [place] 15.1 H (11.5-14.5) % Plt Count 205 (140-350) 10*3/uL MPV 10.6 (7.4-12.2) FL Immature Gran % (Auto) 1.5 (0-5) % Neut % (Auto) 90.5 H (50-80) % Lymph % (Auto) 5.5 L (10-50) % [place] % (Auto) 2.3 L (5-15) % Eos % (Auto) 0 (0-8) % Baso % (Auto) 0.2 (0-1) % Immature Gran # (Auto) 0.31 10*3/UL Neut # (Auto) 18.14 10*3/UL Lymph # (Auto) 1.10 10*3/uL [place] # (Auto) 0.46 (0.3-0.8) 10*3/UL Eos # (Auto) 0.01 10*3/UL Baso # (Auto) 0.04 10*3/UL WBC Morphology Comment Normal morphology (NORM) Plt Morphology Comment Normal morphology (NORM) RBC Morph Comment Normal morphology (NORM) Sodium 137 (135-145) meq/L Potassium 3.9 (3.8-5.2) meq/L Chloride 108 (98-112) meq/L Carbon Dioxide 17 L (23-33) meq/L Anion Gap 12 (5-20) BUN 6 L (7-22) mg/dL Creatinine 0.6 (0.50-1.20) mg/dL Estimated GFR > 60 (>60 ml/min/1.73m(2)) BUN/Creatinine Ratio 10.00 (6-20) Glucose 127 H (78-110) mg/dL Calculated Osmolality 283.0 (267-292) mOsm/kg Calcium 9.3 (8.7-10.7) mg/dL Total Bilirubin 0.5 D (0.3-1.2) mg/dL AST 21 (8-39) IU/L ALT 38 (9-52) IU/L Alkaline Phosphatase 115 (38-126) IU/L Total Protein 7.4 (6.1-8.0) g/dL Albumin 4.1 (3.5-4.8) g/dL Globulin 3.3 (2.50-4.10) g/dL Albumin/Globulin Ratio 1.20 L (1.3-2.0) mg/g Ur Collection Type Voided specimen Urine Color Yellow Urine Clarity Clear (CLEAR) Urine pH 7.0 (5.0-8.5) Ur Specific [place] 1.010 (1.005-1.030) Urine Protein Negative (NEG) mg/dl Urine Glucose (UA) Negative (NEG) mg/dL Urine Ketones 80 (NEG) Urine Occult Blood Negative (NEG) Urine Nitrate Negative (NEG) Urine Bilirubin Negative (NEG) Urine Urobilinogen 0.2 (0.2) EU/dL Ur Leukocyte Esterase Trace (NEG) Urine RBC None (NONE) /hpf Urine WBC 0-2 (NONE) Ur Squamous Epith Cells Few (NONE) Ur Renal Epithelial Cell None (NONE) Urine Crystals None Urine Bacteria None (NONE) Urine Casts None (NONE) Urine Mucus None (NONE) Urine Trichomonas None (NONE) Urine Yeast None (NONE) Ur Culture Indicated? Culture not set Fibronectin Negative Fibronect Spec Quality No - Vital Signs Last Taken Vital Signs: Vital Signs - Last Taken Temperature 98.2 F 12/24/16 05:15 Pulse Rate 104 H 12/24/16 05:15 Respiratory Rate 18 12/24/16 05:15 Blood Pressure 112/63 12/24/16 05:15 Pulse Ox 98 12/24/16 05:15 - Additional Details Additional Details: Lungs clear to auscultation Heart regular rhythm with a rate right around 100 currently Abdomen is soft and nontender without guarding or rebound Extremities without edema and negative [place] bilaterally Assessment and Plan - Assessment / Plan Additional Assessment/Plan Details: Assessment/Plan: IUP 34-5/7 weeks contractions. The patient's contraction frequency and intensity have improved significantly overnight. The patient states that she is feeling better. Celestone 12 mg IM at 1000 hrs. today The patient's IV was saline locked last night since she is drinking fluids. The patient's CECE was 27 cm yesterday. The hydramnios may be an etiology for the contractions The patient's cervix was not checked this morning since her contractions are improved and I did not want to irritate the cervix Nifedipine 10 mg every 3 hours currently. I would like to extend this to every 4 hours. Group B strep is still pending. fibronectin was negative. UA was negative for infection. Culture not set. Previous section-[place] [facility] [place] not do [place]ACs and the patient's baby is in breech presentation Repeat at 39 weeks if patient's contractions cease Repeat earlier if contractions continue. The patient and I did discuss the low risk of uterine rupture, but that is another reason for the patient to be here while todd If the nifedipine seems to be helping and tolerated well by the patient, continue until 36 + wks Recurrent SAB and lupus anticoagulant was on Lovenox 40 mg per day and baby aspirin-81 mg per day The patient was switched over to unfractionated heparin 10,000 units subcutaneous twice a day The concentration of 10,000 units will be discussed with the pharmacy to determine if [facility] [place] has a higher concentration to administer Gestational diabetes taking Glyburide 7-1/2 mg daily at bedtime and 2.5 mg in the morning was the outpatient dose. The patient received 7-1/2 mg last evening and a fasting glucose was 133 this a.m. will administer 5 mg glyburide. The Celestone that is being administered has increased the patient's glucoses. We will continue fingerstick glucoses. If the glucoses elevate significantly, the patient may need a sliding scale of insulin temporarily. History of preeclampsia in last and history of gestational diabetes and last . Patient is on baby aspirin per day. Patient had 2 slightly elevated blood pressures on presentation this morning but since then her blood pressures have been normal. 24-hour urine for total protein is in progress. Liver function tests and creatinine are normal. Platelets are normal. Patient's white count is elevated to 20,000. Yesterday the white count was 15, 000. The white count yesterday was drawn 2.5 hours after the Celestone was administered. There likely was a de-margination of the white blood cell count secondary to the Celestone administration. I do not believe the patient has chorioamnionitis currently. This was also discussed with [facility] who is in agreement. If the patient's abdomen becomes tender or the patient becomes febrile, consider amniocentesis to rule out infection or delivery Additionally, the patient's TSH was checked last week and was low-normal but normal secondary to maternal tachycardia 100-110. Patient's free T4 was low. Patient's free T3 was then checked and was normal. TSH, free T4 and free T3 was checked this week and again TSH low-normal, free T4 low, free T3 was normal. I did speak with our pediatric category analyst here and she thought that since free T3 was normal, no treatment was necessary. Plan: Glyburide 5 mg by mouth now Consider insulin sliding scale if glucoses elevate secondary to the administration of Celestone again today at 1000 hrs. Nifedipine 10 mg every 4 hours starting this morning Continue to collect 24 hour urine I would like to continue hospitalization until patient's Celestone course is complete which would be tomorrow morning. Additionally, I would like the patient to have significantly decreased contractions before discharge secondary to history I will speak with the pharmacy about the possibility of increased concentration of unfractionated heparin for decreased SQ dose. I have spoken with the patient about earlier than 39 weeks if ctxs continue. Patient expressed understanding.
[2016-12-24] MEDS: glyBURIDE 5 MG TABLET PO SCH ×2 (07:45→20:38)
[2016-12-24] MEDS: HEPARIN 5000 UNIT/1 ML SUBCUT SCH ×2 (09:07→20:41)
[2016-12-24] MEDS: OMEPRAZOLE 20 MG CAPSULE PO SCH (09:09)
[2016-12-24] MEDS: ASPIRIN 81 MG (BABY) CHEWABLE TABLET PO SCH (09:09)
[2016-12-24] MEDS: Prenatal Multivitamin Tab 1 TAB TAB PO SCH (09:11)
[2016-12-24] MEDS: BETAMET ACET/BETAMET NA PH 6 MG/1 ML - 5 ML IM SCH (10:06)
[2016-12-24] MEDS: HYDROcodone-APAP 5 MG -325 MG TABLET PO PRN (19:18)
[2016-12-25] MEDS: NIFEdipine 10 MG CAPSULE PO SCH ×3 (01:16→09:04)
[2016-12-25 04:53] LABS: 24 HOUR URINE TOTAL VOLUME 3375 ML
[2016-12-25] MEDS: HYDROcodone-APAP 5 MG -325 MG TABLET PO PRN (05:20)
[2016-12-25] MEDS: glyBURIDE 5 MG TABLET PO SCH (06:45)
[2016-12-25] MEDS: HEPARIN 5000 UNIT/1 ML SUBCUT SCH (08:59)
[2016-12-25 09:04] VITALS: RESP 18; TEMP 98.3
[2016-12-25] MEDS: ASPIRIN 81 MG (BABY) CHEWABLE TABLET PO SCH (09:04)
[2016-12-25] MEDS: Prenatal Multivitamin Tab 1 TAB TAB PO SCH (09:05)
[2016-12-25] MEDS: OMEPRAZOLE 20 MG CAPSULE PO SCH (09:05)
--- NOTE | 2016-12-25 10:08 | DCSUMMARY ---
Hospitalization Summary Admit Date: 12/22/16 Discharge Date: 12/25/16 Primary Diagnosis:: Pre-Term Contractions Hospital Course: The patient was stabilized on PO procardia and given steroids. She was changed over to unfractionated heparin for Lupus AC. She continues on glyburide for GDM. She was discharged to home on HD 3 in good condition. Exam - Vitals Vital Signs: Vital Signs Temperature 98.3 F Temperature Source Oral Pulse Rate [Apical] 110 Pulse Rate [Pulse Oximeter] 104 Pulse Rate 104 Respiratory Rate 18 Blood Pressure [Right Arm] 127/72 Pulse Ox 99 Oxygen Flow Rate 16 Oxygen Delivery Method Room Air Height 5 ft 7 in Weight 174 lb
--- NOTE | 2016-12-25 10:09 | OB.PROGRES ---
Interval History: The patient remains stable this AM with only irregular, non-painful contractions. She will be discharged to home this morning to F/U with Dr. Guillermo early next week. Objective - Labs CBC and BMP: 12/23/16 12:27 12/23/16 12:27 Labs - Last 24 Hours: Laboratory Results 12/25/16 Range/Units 03:30 Ur 24 Hour Volume 3375 ML Ur Total Protein 24 Hr 16 mg/dL U Tot Protein 24h, Calc 540 H (42-225) mg/DAY - Vital Signs Last Taken Vital Signs: Vital Signs - Last Taken Temperature 98.3 F 12/25/16 09:02 Pulse Rate 110 H 12/25/16 09:02 Respiratory Rate 18 12/25/16 09:02 Blood Pressure 127/72 12/25/16 09:02 Pulse Ox 99 12/25/16 09:02
== END 2016-12-25 10:52 | disposition home or self-care (01) | DRG 778 ==
LOC: OBOP 07:45 → US 07:45 → OBIP 12:01 → UNDOADMIN 12:52 → UNDODISIN 12-25 10:52
PROVIDERS: ADMIT Obstetrics & Gynecology; ATTEND Obstetrics & Gynecology
DX: O60.03 Preterm labor without delivery, third trimester (principal); O99.283 Endocrine, nutritional and metabolic diseases complicating pregnancy, third trimester; Z3A.34 34 weeks gestation of pregnancy
CPT/HCPCS: 36415; 59025; 76536; 76815; 80053; 81001; 81003; 82731; 82948; 84156; 85025; 87150; 99211; J0702; J1644; J7120; Q0177

== ENCOUNTER 2016-12-27 08:48 | Outpatient (CLI) | payer OTHER, BC ==
[2016-12-27 10:18] LABS: HEMATOCRIT 36.9 % (37.0-47.0); HEMOGLOBIN 12.6 g/dL (12.0-16.0); MEAN CORPUSCULAR HEMOGLOBIN 29.2 PG (27-31); MEAN CORPUSCULAR HGB CONC 34.1 g/dL (33-37); MEAN CORPUSCULAR VOLUME 85.4 FL (81-99); RED BLOOD COUNT 4.32 10^6/uL (4.20-5.40)
[2016-12-27 10:25] VITALS: RESP 20; TEMP 97.9
[2016-12-27] MEDS ORDERED: NORMAL SALINE 10 ML SYRINGE FLUSH IVP PRN (10:25)
[2016-12-27 10:31] LABS: BLOOD UREA NITROGEN 10 mg/dL (7-22); CALCIUM 9.2 mg/dL (8.7-10.7); EST GLOMERULAR FILTRATION > 60 (>60 ml/min/1.73m(2)); SERUM ALBUMIN 3.8 g/dL (3.5-4.8)
--- NOTE | 2016-12-27 10:52 | PDOC(PROG) ---
Intake - - Reason for Visit/Chief Complaint: Bi-weekly NST Admitted From: Home - Estimated Due Date: 01/30/17 Gestational Age in Weeks and Days: 35 Weeks and 1 Days : 5 Para: 1 Term Births: 1 Births: 0 Number of Abortions (Spont./Elective): 3 Living Children: 1 - Labs Blood Type and Rh: A- Maternal - Vital Signs Last Taken Vital Signs: Vital Signs - Last Taken Temperature 97.9 F 12/27/16 09:12 Pulse Rate 96 12/27/16 09:30 Respiratory Rate 20 12/27/16 09:12 Blood Pressure 124/85 12/27/16 09:30 Pulse Ox 97 12/27/16 09:12 - Uterine Activity Uterine Contraction Monitor Mode: External Contraction Frequency(minutes): 8-12 Contraction Duration (seconds): 30-90 Uterine Contraction Pattern: Irregular Uterine Tone Measurement Phase: Resting Uterine Contraction Intensity: Mild - Vaginal Discharge Vaginal Bleeding Amount: None Vaginal Discharge Amount: None Monitoring - Uterine Activity Uterine Contraction Monitor Mode: External Contraction Frequency(minutes): 8-12 Contraction Duration (seconds): 30-90 Uterine Contraction Pattern: Irregular Uterine Tone Measurement Phase: Resting Uterine Contraction Intensity: Mild Results - Labs CBC and BMP: 12/27/16 09:56 12/27/16 09:55 - Bedside Testing Bedside Urine Ketone: Negative Bedside Urine Leukocytes Esterase: Negative Bedside Urine Nitrite: Negative Bedside Urine Occult Blood: Negative Bedside Urine Protein: Negative Bedside Specific [place]: 1.020 Assessment and Plan - Assessment / Plan Additional Assessment/Plan Details: Assessment: IUP 35+ weeks for antepartum testing secondary to multiple medical issues with her . Lupus anticoagulant with recurrent SABs taking unfractionated heparin 7500 units subcutaneous twice a day currently. Gestational diabetes taking glyburide twice a day, recent 24-hour urine with proteinuria-540 mg in 24 hours with a history of preeclampsia in her last 10+ years ago, previous section scheduled for repeat section, contractions taking nifedipine 10 mg every 4 hours since last week when the patient was admitted for contractions. The patient had a reactive nonstress test with contractions every 8-12 minutes. The patient states that she was doing well with positive movement, no leak of fluid, no bleeding. Contraction frequency has been about every 8-12 minutes since discharge from the hospital. The patient is status post Celestone course last week secondary to contractions. Plan: Continue antepartum testing Continue unfractionated heparin 7500 units subcutaneous twice a day Continue glyburide twice a day Continue nifedipine 10 mg every 4 hours Continue decreased activity at home The patient will see me this week for an appointment. Most likely, patient will have repeat section around 37+ weeks unless the patient has labor prior to that or the patient developed severe preeclampsia. I will continue nifedipine 10 mg every 4 hours until 36+ weeks.
== END 2016-12-27 10:05 | disposition home or self-care (01) ==
LOC: OBOP 08:48
PROVIDERS: ATTEND Obstetrics & Gynecology
DX: O24.415 Gestational diabetes mellitus in pregnancy, controlled by oral hypoglycemic drugs (principal); O99.113 Other diseases of the blood and blood-forming organs and certain disorders involving the immune mechanism complicating pregnancy, third trimester; D68.8 Other specified coagulation defects; O09.893 Supervision of other high risk pregnancies, third trimester; Z3A.35 35 weeks gestation of pregnancy
CPT/HCPCS: 59025; 80053; 81003; 85027

== ENCOUNTER 2016-12-28 15:08 | Inpatient (IN) | payer OTHER, BC ==
[2016-12-28] MEDS ORDERED: NORMAL SALINE 10 ML SYRINGE FLUSH IVP PRN ×2 (15:51→17:41)
[2016-12-28] MEDS ORDERED: LIDOCAINE W/ SODIUM BICARB 0.5 ML SYR SUBD ONE (15:57)
[2016-12-28] MEDS ORDERED: Lactated Ringers 500 ML PRIMARY IV ONE ×2 (16:00→16:30)
[2016-12-28 16:03] LABS: BILIRUBIN,URINE NEGATIVE (NEG); CLARITY,URINE CLEAR (CLEAR); COLOR,URINE YELLOW; GLUCOSE, URINE (UA) NEGATIVE (NEG); NITRATE,URINE NEGATIVE (NEG); OCCULT BLOOD,URINE NEGATIVE (NEG); PROTEIN,URINE NEGATIVE (NEG); UROBILINOGEN,URINE 0.2 EU/dL (0.2)
[2016-12-28 16:04] LABS: URINE SAMPLE TYPE CLEAN CATCH URINE
[2016-12-28] MEDS ORDERED: Lactated Ringers 1,000 ML PRIMARY IV ONE (16:07)
[2016-12-28 16:09] LABS: SQUAMOUS EPITHELIAL CELL,UR FEW; WBC,URINE 0-1
[2016-12-28 16:25] VITALS: RESP 20; TEMP 98
[2016-12-28] MEDS ORDERED: NIFEdipine 10 MG CAPSULE PO ONE (16:40)
[2016-12-28] MEDS ORDERED: LIDOCAINE W/ SODIUM BICARB 0.5 ML SYR SUBD PRN (17:41)
[2016-12-28] MEDS ORDERED: ONDANSETRON 4 MG/2 ML VIAL IVP PRN (17:41)
[2016-12-28] MEDS ORDERED: Lactated Ringers 1,000 ML PRIMARY IV SCH (17:45)
--- NOTE | 2016-12-28 17:50 | DI ---
LIMITED OBSTETRICAL ULTRASOUND WITH CECE, 12/28/2016 3:53 PM Clinical History: Polyhydramnios. Gestational diabetes. labor. Previous Exam: 12/23/2016. ADJUSTED LMP: 04/25/2016. There is a single live IUP currently in breech presentation. Amnionic fluid content is mildly increas ed for this stage of . Amniotic fluid index is 18.9 cm. activity is observed as follow s: cardiac, extremity, and respiratory. The placenta is anterior corpus and Grade 1. heart rate is 152 beats/minute and regular. Well-formed distal femoral epiphyses are visualized. BPD, HC, AC, a nd FL measurements are 87 mm, 317 mm, 364 mm, and 68 mm, respectively. These measurements correspond to EGA values of 35 weeks 1 day, 35 weeks 5 days, 40 weeks 3 days, and 35 weeks 0 days, respectively. Composite EGA is 36 weeks 4 days. The [place] EDC is 01/21/2017. EDC by adjusted LMP is 01/30/2017. LMP perc entile is 98%. Estimated weight is 3364 g, plus or minus 491 g. Readin. Single live fetus currently in breech presentation. Mild polyhydramnios was present for this stag e of . Amnionic fluid index is 18.9 cm. Placenta is anterior corpus and grade 1. 2. The composite EGA is 36 weeks 4 days with an ultrasound EDC of 01/21/2017. Based on the adjusted LM P date of 04/25/2016, the EDC would be 01/30/2017. 3. LMP percentile is 98%. Estimated weight is 3364 g, plus or minus 491 g. 4. Well formed distal femoral epiphyses are visualized.
--- NOTE | 2016-12-28 17:51 | OB.PROGRES ---
Interval History: The patient is a 31-year-old at 35 2/7 weeks who presented today for painful contractions. The patient has been undergoing Antepartum testing secondary to positive lupus anticoagulant taking unfractionated heparin 7500 units subcutaneous daily and gestational diabetes taking glyburide daily at bedtime and every morning. Patient's last dose of unfractionated heparin was at 10:30 this morning. The patient also recently had a 24 urine for total protein which was 540 mg in 24 hours. The patient presented today for increased contractions. The patient was recently admitted last week for contractions and was administered Celestone 1 course on December 23 and . The patient was also started on nifedipine 10 mg every 3 hours and then extended to every 4 hours before discharge. The patient was discharged home on 12/25/2016 when the steroid window was complete. The patient was todd every 8-12 minutes at that time. With the presentation today, the patient was found to be todd regularly every 2 minutes. No vaginal bleeding. Positive movement, no leak of fluid. The nurse checked the patient's cervix and labor and delivery and it was thought to be the same as last week with no cervical change compared to last week. An CECE was completed and was found to be 18.9 cm and an EFW was in the 98th percentile with an estimated weight of around 3300 g but the abdominal circumference is large and the 98th percentile. This could skew the EFW to be increased. The patient was administered nifedipine at the three-hour holly. The patient states that her contractions are 4-5 out of 10 in intensity. Last week they were to to 3 out of 10 in intensity. Also, last week the patient's CECE was 27 cm. The patient has a positive lupus anticoagulant or antiphospholipid antibody syndrome with a history of recurrent SABs and therefore workup and her Al' s viper venom was +2 different times over a three-month period. The patient currently is taking a baby aspirin daily and she was taking Lovenox 40 mg per day subcutaneously with an injection but now is taking 7500 mg of unfractionated heparin subcutaneous twice a day. Past medical history is significant for recurrent SAB, a sleep disorder for which the patient takes trazodone up to 100 mg daily. The patient also has a hiatal hernia and has a history of GERD but does not have GERD currently. Patient has a history of depression but not currently. The patient also has a gluten enteropathy. Past surgical history after arrest of descent with unsuccessful forceps and vacuum. No known drug allergies No tobacco, alcohol, drugs Current medications vitamin, baby aspirin per day, Lovenox 40 mg daily subcutaneous, trazodone-patient is currently taking 25 mg at night for sleep and this is not helping that much. OB history significant for PIH and gestational diabetes. The patient states it was diet controlled at that time. The patient states that sometimes her glucoses were elevated. [employer] history with menarche age 12, irregular cycles 3545 days in length, no STI history, no abnormal Pap smear history with her last Pap smear within the last year and was normal and she had a negative GC and chlamydia. Family history significant for brother having Graves' disease Objective - Cervical Exam Cervical Exam: loose 1 cm/thick/high moderately firm. No blood with the exam [place]: Contractions every 2-3 minutes Heart Rate Interpretation Category: Category I - Labs CBC and BMP: 12/28/16 18:02 12/28/16 18:02 Labs - Last 24 Hours: Laboratory Results 12/28/16 Range/Units 15:59 Ur Collection Type Clean catch urine Urine Color Yellow Urine Clarity Clear (CLEAR) Urine pH 6.0 (5.0-8.5) Ur Specific [place] 1.010 (1.005-1.030) Urine Protein Negative (NEG) mg/dl Urine Glucose (UA) Negative (NEG) mg/dL Urine Ketones Negative (NEG) Urine Occult Blood Negative (NEG) Urine Nitrate Negative (NEG) Urine Bilirubin Negative (NEG) Urine Urobilinogen 0.2 (0.2) EU/dL Ur Leukocyte Esterase Negative (NEG) Urine RBC None (NONE) /hpf Urine WBC 0-1 (NONE) Ur Squamous Epith Cells Few (NONE) Ur Renal Epithelial Cell None (NONE) Urine Crystals None Urine Bacteria None (NONE) Urine Casts None (NONE) Urine Mucus None (NONE) Urine Trichomonas None (NONE) Urine Yeast None (NONE) Ur Culture Indicated? Culture not set - Vital Signs Last Taken Vital Signs: Vital Signs - Last Taken Temperature 98.0 F 12/28/16 15:40 Pulse Rate 90 12/28/16 15:40 Respiratory Rate 20 12/28/16 15:40 Blood Pressure 136/76 12/28/16 15:40 Pulse Ox 100 07/11/17 15:40 - Additional Details Additional Details: Lungs clear to auscultation Heart regular rate and rhythm Abdomen is gravid, soft, no guarding or rebound. By Gigi's, the baby is in the breech presentation. Assessment and Plan - Assessment / Plan Additional Assessment/Plan Details: Assessment/Plan: IUP 35-2/7 weeks contractions. The patient with significant contractions that are painful. The patient is blowing through some of the contractions. The patient states the contractions are much more intense than last week. There is been no cervical change since last week with a cervical exam a loose 1 cm thick and high and moderately firm. Previous section-the patient has a history of prior section 10 + years ago. The patient's baby is in the breech presentation. Here at [facility] we do not do TOLACs but also the baby is in the breech presentation. Recurrent SAB and lupus anticoagulant was on Lovenox 40 mg per day and baby aspirin-81 mg per day The patient was switched over to unfractionated heparin 7,500 units subcutaneous twice a day last week. Still taking a baby aspirin 81 mg per day Initially the patient was placed on 10,000 units unfractionated heparin subcutaneous twice a day but our pharmacy calculated 7500u twice a day Gestational diabetes taking Glyburide 7-1/2 mg daily at bedtime and 5 mg in the morning was the outpatient dose. Patient's glucoses have been fairly well controlled. Receiving the Celestone last week did cause elevated glucoses but are improved now History of preeclampsia in last and history of gestational diabetes and last . The patient has had mildly elevated blood pressures last week and this week initially area currently, the patient is on nifedipine which is an antihypertensive so her actual blood pressures may be elevated. The patient most likely has preeclampsia. Patient is on baby aspirin per day. The patient had 2 mildly elevated blood pressures around 140/90 on admission but since then her blood pressures have been lower. 24-hour urine for total protein last week was 540 mg. CBC showed slight hemoconcentration of 13 and 38. Normal platelets. Liver function tests were normal and creatinine was 0.6 UA with micro- had negative protein today Of note, The patient's TSH was checked last week and was low-normal but normal secondary to maternal tachycardia 100-110. Patient's free T4 was low. Patient's free T3 was then checked and was normal. TSH, free T4 and free T3 was checked this week and again TSH low-normal, free T4 low, free T3 was normal. I did speak with our pediatric insurance consultant here and she thought that since free T3 was normal, no treatment was necessary. Plan: I did speak with the physician covering care just now. I discussed my patient's case with him and the gestational age and the fact that the patient received steroids last week. However, he thought it was best from a pediatric standpoint to discuss with the patient shipping her to our consultants in [place], [place] since we do not have a nursery her NICU here. I have discussed this with the patient and she expressed understanding though she was extremely disappointed. I did discuss with the patient that there is a possibility that we could transfer her to our maternal- medicine consultants in [place], [place] and then her contractions could slow down and decrease in intensity and they would not deliver her right away. She could be in the hospital for a couple days and then be discharged and transferred back to [facility]. The patient expressed understanding. Nifedipine 10 mg every 3 hours. IV fluids of LR 125 mL per hour. Close observation Currently the patient is discussing with her and with her [id number] the prospect of being transferred to [place], [place]. I informed the patient that I will be glad to wait 30 minutes to determine if her contractions with decrease in frequency and intensity. I spoke with the patient again and the patient would like to stay here but at the same time understands that pediatrics is not comfortable with the gestational age and delivering here. She asked that I speak with maternal medicine in [place], [place]. I spoke with Dr. Kamaljit Shoemaker in [place], [place]. He suggested that the best option is to transfer the patient to [place], [place] at [facility]. However, they would not be aggressive in delivering the patient if there is not significant cervical change or other change in her contraction pattern. He said that if the contractions did resolve, they could send the patient back in several days. Dr. Shoemaker understands that [facility] a [facility] and do not have a nursery. I spoke with the patient again. The patient states that her contractions are still very uncomfortable and frequent. The patient understands the reasons for transfer to [place], [place] and also understands the possibility that her contractions may decrease in intensity and frequency and that delivery may not be immediate when she arrives. She also understands the possibility that they may observe her for several days and if her contractions are not frequent, they may transfer the patient back to [facility] at 36 plus weeks gestation when pediatrics here would be comfortable with the delivery. The paperwork for the transferred to [place] has been signed.
[2016-12-28 18:04] LABS: BASOPHILS # (AUTO) 0.05 10*3/UL; BASOPHILS % (AUTO) 0.3 % (0-1); EOSINOPHILS # (AUTO) 0.07 10*3/UL; EOSINOPHILS % (AUTO) 0.4 % (0-8); HEMATOCRIT 38.4 % (37.0-47.0); HEMOGLOBIN 13.3 g/dL (12.0-16.0); LYMPHOCYTES # (AUTO) 2.69 10*3/uL; MEAN CORPUSCULAR HEMOGLOBIN 29.2 PG (27-31); MEAN CORPUSCULAR HGB CONC 34.6 g/dL (33-37); MEAN CORPUSCULAR VOLUME 84.4 FL (81-99); MEAN PLATELET VOLUME 10.4 FL (7.4-12.2); MONOCYTES # (AUTO) 1.65 10*3/UL (0.3-0.8); MONOCYTES % (AUTO) 8.5 % (5-15); NEUTROPHILS # (AUTO) 14.63 10*3/UL; RED BLOOD COUNT 4.55 10^6/uL (4.20-5.40)
[2016-12-28 18:05] LABS: PLATELET MORPHOLOGY COMMENT NORMAL MORPHOLOGY (NORM); RBC MORPHOLOGY COMMENT NORMAL MORPHOLOGY (NORM); WBC MORPHOLOGY COMMENT NORMAL MORPHOLOGY (NORM)
[2016-12-28 18:31] LABS: BLOOD UREA NITROGEN 9 mg/dL (7-22); CALCIUM 9.1 mg/dL (8.7-10.7); EST GLOMERULAR FILTRATION > 60 (>60 ml/min/1.73m(2)); SERUM ALBUMIN 3.9 g/dL (3.5-4.8)
[2016-12-28] MEDS ORDERED: NIFEdipine 10 MG CAPSULE PO SCH (19:30)
[2016-12-29] MEDS ORDERED: Prenatal Multivitamin Tab 1 TAB TAB PO SCH (09:00)
== END 2016-12-28 21:45 | disposition short-term general hospital (02) | DRG 778 ==
LOC: OBOP 15:08 → OBIP 17:41
PROVIDERS: ADMIT Obstetrics & Gynecology; ATTEND Obstetrics & Gynecology
DX: O60.03 Preterm labor without delivery, third trimester (principal); Z3A.35 35 weeks gestation of pregnancy
CPT/HCPCS: 36415; 76815; 80053; 81003; 81015; 85025; J7120